=== PATIENT | female | born 1985 | race Caucasian/White ===

== ENCOUNTER 2016-11-04 09:30 | Outpatient (CLI) | payer OTHER | END 2016-11-04 23:00 | LOC: LAB SRH 09:30 | DX: M23.331 Other meniscus derangements, other medial meniscus, right knee (principal) | CPT/HCPCS: 90074; 92860; 93003; 95150; 98020; 98460 ==

== ENCOUNTER 2016-12-08 11:33 | Emergency (ER) | payer OTHER ==
--- NOTE | 2016-12-08 16:18 | ED NURSING NOTES ---
Clinical Report - Nurses [facility] [address] [place] [address] 12/08/2016 11:33 Patient: MARI LOUIE TRIAGE Triage time 11:45. Acuity: LEVEL 3. Chief Complaint: ABDOMINAL PAIN, VOMITING and DIARRHEA. Alert. No acute distress. SEPSIS SCREEN: Sepsis Screen. Negative (no infection suspected/documented). RUBEN COMA SCORE: Ruben Coma Scale: 15- eyes open spontaneously (4); best verbal response- oriented x 4 (5); best motor response- obeys commands (6). --11:49 Pat Olivera R.N. 11:43 12/08/16. BP: 120/83. HR: 124. RR: 16. O2 saturation: 100%. Temp: 98.9 F. Pain level now 8/10. --11:49 Pat Olivera R.N. Weight: 95.2 kg stated. Height/Length: 63 inches Per Patient. BMI: 37.2. --11:44 Pat Olivera R.N. Medications None. --11:46 Pat Olivera R.N. Allergies Cephalexin.(hives) --11:47 Pat Olivera R.N. The following entry was struck and corrected by Pat Olivera R.N., 11:47 (12/08/16) Reason for correction - other(correction). <<STRICKEN ENTRY-- Cephalexin. --11:47 Pat Olivera R.N. --END STRIKE>>. History Arrived by private vehicle. Historian: patient. Accompanied by (Boyfriend). Primary physician (Dr. Cunningham). ( "I woke up sat morning with really back back pain. Every time I move a certain way it spasms. Then I just started throwing up and having diarrhea this morning. Even if I have a little drink I start throwing it up and have diarrhea."). Treatment ELECTRO MECHANIC: None. PAST MEDICAL HX: Immunizations: up-to-date. Last normal menstrual period now. Uses depo implants. SOCIAL HX: Never smoker. No alcohol use or drug use. No recent travel. No infectious disease exposure. No known contact with a sick individual. ABUSE ASSESSMENT: Abuse assessment: The patient was asked "Do you feel safe in your home?" and "Has anyone hurt you or threatened to hurt you?". No report of abuse. SELF HARM ASSESSMENT: A self harm assessment was performed. The patient answered "no" to the question "Do you have thoughts of harming or killing yourself?" and "Have you recently had thoughts about harming or killing others?". NUTRITIONAL RISK ASSESSMENT: The nutritional risk assessment revealed no deficiencies. FUNCTIONAL ASSESSMENT: Functional assessment: no impairments noted. LEARNING NEEDS ASSESSMENT: The learning needs assessment revealed no barriers. --11:49 Pat Olivera R.N. PROBLEMS: Abscess. . . Tonsillitis. Abdominal Pain. Diarrhea. URI. UTI - Urinary Tract Infection. Gastroesophageal Reflux. Pyloric Stenosis, Infantile. Costochondritis. --11:47 Pat Olivera R.N. ADDITIONAL SURGERIES: Appendectomy. Laparoscopy. Pyloric Stenosis Surgery. --11:48 Pat Olivera R.N. Interventions ID band on patient. Ambulatory. --11:49 Pat Olivera R.N. Allergy band on patient. --11:49 Pat Olivera R.N. PHYSICAL ASSESSMENT Ambulatory to room. GENERAL / NEURO / PSYCH: Alert. Appears in no acute distress. HEENT: Mucous membranes are pink. RESPIRATORY: Respirations not labored. CVS: Capillary refill less than 2 seconds. GI / : Abdomen soft. Abdominal tenderness diffusely. SKIN: Skin is warm and dry. --11:49 Pat Olivera R.N. NURSING PROGRESS NOTES Patient gowned. Head of bed elevated. Two patient identifiers checked. Call light placed in reach. Side rails up x 2. Bed placed in lowest position. Brakes of bed on. Patient ready for evaluation- chart flagged. --11:49 Pat Olivera R.N. 11:50 12/08/2016 Site #1 started via IV in the right antecubital space with an 20g angiocath, with aseptic technique and good blood return; two attempts. Saline lock flushed with 10 mL saline (IV accessed by ODALYS Deutsch. Lab notified for blood draw.). --13:05 Pat Olivera R.N. 11:50 12/08/2016 Started bag #1 1000 mL IV Fluids IV NS (Saline); at 1000 mL/hr over 1 hour(s) via site #1 via IV pump. Allergies verified and confirmed 5 rights. IV patency established. IV site checked: no pain, redness, or swelling. IV flushed thoroughly pre- and post-medication administration. --13:05 Pat Olivera R.N. 13:05 12/08/2016 PHENERGAN (Promethazine HCl) IVP 25 mg given over 3 minute(s) via site #1. Allergies verified and confirmed 5 rights. IV patency established. IV site checked: no pain, redness, or swelling. IV flushed thoroughly pre- and post-medication administration. --13:07 Pat Olivera R.N. 13:08 12/08/2016 Morphine IVP 4 mg given over 1 minute(s) via site #1. Allergies verified, confirmed 5 rights and sedative warning given to the patient. IV patency established. IV site checked: no pain, redness, or swelling. IV flushed thoroughly pre- and post-medication administration. --13:08 Pat Olivera R.N. Reassessment after fluids administered and medication administered. She has had no adverse reaction. Patient and family informed about reason for wait. --13:11 Pat Olivera R.N. 13:11 12/08/16. BP: 126/73. HR: 105. RR: 15. O2 saturation: 100%. --13:11 Pat Olivera R.N. 13:25. ( patient given mouth moist tube and swab. States the Phenergan helped with the nausea. Still unable to urinate. Will check back with her in 30 min). --13:33 Amaris Lowery R.N. 14:17 12/08/2016 Site #2 started via IV in the right upper arm with an 20g angiocath, with aseptic technique and good blood return; one attempt. Blood drawn: rainbow set. Labeled in the presence of the patient and sent to the lab. Saline lock flushed with 10 mL saline. --14:32 Ayanna Khalil R.N. 15:37 12/08/2016 Started bag #1 1000 mL IV Fluids IV NS (Saline); at 1000 mL/hr over 1 hour(s) via site #2 via IV pump. Allergies verified and confirmed 5 rights. IV patency established. IV site checked: no pain, redness, or swelling. IV flushed thoroughly pre- and post-medication administration. --15:37 Pat Olivera R.N. 15:37 12/08/2016 Zofran (Ondansetron HCl) IVP 4 mg given over 1 minute(s) via site #2. Allergies verified and confirmed 5 rights. IV patency established. IV site checked: no pain, redness, or swelling. IV flushed thoroughly pre- and post-medication administration. --15:37 Pat Olivera R.N. 15:37 12/08/16. BP: 111/65. HR: 110. RR: 16. O2 saturation: 100%. Pain level now 02/08. --15:41 Pat Olivera R.N. DISPOSITION / DISCHARGE 16:57 12/08/2016 Site #1 removed upon discharge. Catheter intact. Manual pressure and bandaid applied. --17:00 Pat Olivera R.N. 16:57 12/08/2016 Site #2 removed upon discharge. Catheter intact. Manual pressure and bandaid applied. --17:00 Pat Olivera R.N. ( provider aware of discharge v/s. No new orders received.). --17:03 Pat Olivera R.N. 16:59 12/08/16. BP: 114/68. HR: 105. RR: 15. O2 saturation: 99%. Temp: 100.2 F. Pain level now 12/09. --17:03 Pat Olivera R.N. 16:59. Condition at departure: stable. No learning barriers present. Discharge instructions provided and reviewed with the patient. Reviewed medication(s) side effects, precautions, dosing and course information. Prescription(s) given to the patient. Reviewed referral to family practice for followup. Patient verbalized understanding. Written instructions provided in Egyptian. The patient was discharged home and accompanied by nanotechnician. She left the Emergency Department ambulatory and via private vehicle. Distance Learning Administrator driving. Medication list reviewed and validated. --17:04 Pat Olivera R.N. Departure time: 1658. --17:04 Pat Olivera R.N. Locked/Released at 12/08/2016 18:55 by Pat Olivera R.N.
--- NOTE | 2016-12-08 16:18 | ED ORDER SUMMARY ---
..... Patient: MARI LOUIE OrderSheet [facility] VisitID: [id number] [place] [address] 30y, F Registration Date/Time: 12/08/2016 ORDER SHEET Weight: 95.2 kg (stated) Allergies: Cephalexin GENERAL ORDERS: UA-Culture if indicated Urgent (11:45 12/08/2016 Alysia Covarrubias) (Ack 11:53 TBergley) (14:55 TBergley) Urine Urgent (11:45 12/08/2016 Alysia Covarrubias) (Ack 11:53 TBergley) (14:55 TBergley) CBC w Diff Urgent (12:50 12/08/2016 Alysia Covarrubias) (Ack 12:51 TBergley) (14:04 SReitz R.N.) CMP Urgent (12:50 12/08/2016 Alysia Covarrubias) (Ack 12:51 TBergley) (14:04 SReitz R.N.) Lipase Urgent (12:50 12/08/2016 Alysia Covarrubias) (Ack 12:51 TBergley) (14:04 Alenitz R.N.) Pulse oximeter (12:50 12/08/2016 Alysia Covarrubias) (Ack 12:51 TBergley) (14:04 SReitz R.N.) MEDICATION ORDERS: Phenergan IV 25 mg (HIGH ALERT MEDICATION, NOW) (12:49 12/08/2016 Alysia Covarrubias) (Ack 12:57 SReitz R.N.) (13:07 SReitz R.N.) IV FLUIDS: IV NS : initial bolus 1000 mL (1000 mL/hr), then none - for X1 (NOW) (12:49 12/08/2016 Alysia Covarrubias) (Ack 12:57 Alenitz R.N.) (13:05 SReitz R.N.) Morphine IV 4 mg (HIGH ALERT MEDICATION, NOW) (12:50 12/08/2016 Alysia Covarrubias) (Ack 12:57 Deep R.N.) (13:08 Alenitz R.N.) Zofran IV 4 mg (NOW) (15:01 12/08/2016 Alysia Covarrubias) (15:37 Deep R.NReji) IV NS : initial bolus 1000 mL (1000 mL/hr), then none - for X1 (NOW) (15:12/08/2016 Alysia Covarrubias) (15:37 Deep Lawrence.NReji) ORDER SHEET NOTES: [Electronically signed by Pat Olivera R.N. (18:55 12/08/2016)] [Electronically signed by Aman Abdi Dr. (05:39 12/11/2016)] [Electronically locked/signed by Pat Olivera R.N. (18:55 12/08/2016)]
--- NOTE | 2016-12-08 16:18 | ED ORDER SUMMARY ---
..... Patient: MARI LOUIE OrderSheet [facility] VisitID: [id number] [place] [address] 30y, F Registration Date/Time: 12/08/2016 ORDER SHEET Weight: 95.2 kg (stated) Allergies: Cephalexin GENERAL ORDERS: UA-Culture if indicated Urgent (11:45 12/08/2016 Alysia Covarrubias) (Ack 11:53 TBergley) (14:55 TBergley) Urine Urgent (11:45 12/08/2016 lAysia Covarrubias) (Ack 11:53 TBergley) (14:55 TBergley) CBC w Diff Urgent (12:50 12/08/2016 Alysia Covarrubias) (Ack 12:51 TBergley) (14:04 SReitz R.N.) CMP Urgent (12:50 12/08/2016 Alysia Covarrubias) (Ack 12:51 TBergley) (14:04 SReitz R.N.) Lipase Urgent (12:50 12/08/2016 Alysia Covarrubias) (Ack 12:51 TBergley) (14:04 Alenitz R.N.) Pulse oximeter (12:50 12/08/2016 Alysia Covarrubias) (Ack 12:51 TBergley) (14:04 SReitz R.N.) MEDICATION ORDERS: Phenergan IV 25 mg (HIGH ALERT MEDICATION, NOW) (12:49 12/08/2016 Alysia Covarrubias) (Ack 12:57 SReitz R.N.) (13:07 SReitz R.N.) IV FLUIDS: IV NS : initial bolus 1000 mL (1000 mL/hr), then none - for X1 (NOW) (12:49 12/08/2016 Alysia Covarrubias) (Ack 12:57 Alenitz R.N.) (13:05 SReitz R.N.) Morphine IV 4 mg (HIGH ALERT MEDICATION, NOW) (12:50 12/08/2016 Alysia Covarrubias) (Ack 12:57 Deep R.N.) (13:08 Alenitz R.N.) Zofran IV 4 mg (NOW) (15:01 12/08/2016 Alysia Covarrubias) (15:37 Deep R.NReji) IV NS : initial bolus 1000 mL (1000 mL/hr), then none - for X1 (NOW) (15:12/08/2016 Alysia Covarrubias) (15:37 Deep Lawrence.NReji) ORDER SHEET NOTES: [Electronically signed by Pat Olivera R.N. (18:55 12/08/2016)] [Electronically signed by Aman Abdi Dr. (05:39 12/11/2016)] [Electronically locked/signed by Pat Olivera R.N. (18:55 12/08/2016)]
--- NOTE | 2016-12-08 16:18 | ED CLINICAL REPORT ---
Clinical Report - Physicians/Mid Levels [facility] [address] [place] [address] 12/08/2016 11:33 Patient: MARI LOUIE Arrived- By private vehicle. Historian- patient. HISTORY OF PRESENT ILLNESS Chief Complaint: ABDOMINAL PAIN. At its maximum, severity described as moderate. Modifying factors- worsened by movement. Relieved by rest. This started today and is still present. It was abrupt in onset and has been constant but is not gone now. It is described as cramping and it is described as generalized in location and radiating to the upper back. The patient has had nausea, vomiting and diarrhea. No loss of appetite. No recent travel. Similar symptoms previously: None. Recent medical care: Not recently seen/assessed. REVIEW OF SYSTEMS No chest pain. All systems otherwise negative, except as recorded above. PAST HISTORY See nurses notes. Medications: None. Allergies: Cephalexin.(hives). SOCIAL HISTORY Never smoker. No alcohol use or drug use. No recent travel. Is a local resident. ADDITIONAL NOTES The nursing notes have been reviewed. PHYSICAL EXAM Vital Signs: 12/08/2016 11:43 BP: 120/83. HR: 124. RR: 16. O2 saturation: 100%. Temp: 98.9 F. Blood pressure normal. Oxygen saturation normal. Appearance: Alert. Oriented X3. No acute distress. Eyes: Pupils equal, round and reactive to light. Eyes normal inspection. ENT: Ears normal. Nose normal. Pharynx normal. Neck: Normal inspection. Neck supple. CVS: Normal heart rate and rhythm. Heart sounds normal. Pulses normal. Respiratory: No respiratory distress. Breath sounds normal. Chest nontender. Abdomen: Soft and nontender. No organomegaly. No mass. (hyperative bowel sounds). Back: Normal inspection. Skin: Skin warm and dry. Normal skin color. No rash. Normal skin turgor. Extremities: Extremities exhibit normal ROM. No lower extremity edema. LABS, X-RAYS, AND EKG Laboratory Tests: UA-Culture if indicated: (ELLE: 12/08/2016 14:55) ( MsgRcvd 12/08/2016 15:21) Final results Test Result Flag Units (Reference) URINE COLOR YELLOW URINE APPEARANCE CLEAR URINE GLUCOSE NEGATIVE (NEGATIVE) URINE BILIRUBIN NEGATIVE (NEGATIVE) URINE KETONE NEGATIVE (NEGATIVE) URINE SPECIFIC GRAVITY 1.015 (1.010-1.030) URINE PH 7.5 (5.0-8.0) URINE PROTEIN NEGATIVE (NEGATIVE) URINE UROBILINOGEN 0.2 EU/dL (0.2-1.0) URINE NITRITE NEGATIVE (NEGATIVE) URINE BLOOD NEGATIVE (NEGATIVE) URINE LEUK ESTERASE NEGATIVE (NEGATIVE) URINE RBC 0-1 rbc/hpf (0-1) URINE WBC 0-1 wbc/hpf (0-1) URINE EPITHELIAL CELLS 3-5 EPI/hpf (0-5) URINE BACTERIA TRACE (<1+) (NONE SEEN) URINE COMMENT CULT NOT INDICATED URINE CULTURES ARE SET-UP BASED ON THE FOLLOWING CRITERIA:POSITIVE NITRITEPOSITIVE LEUKOCYTE ESTERASEGREATER THAN 10 WHITE BLOOD CELLSMODERATE (2+) OR GREATER BACTERIA Urine: (ELLE: 12/08/2016 14:55) ( [facility] 12/08/2016 15:08) Final results Test Result Flag Units (Reference) URINE NEGATIVE CBC w Diff: (ELLE: 12/08/2016 14:20) ( [facility] 12/08/2016 15:40) Final results Test Result Flag Units (Reference) WHITE BLOOD COUNT 17.6 H K/uL (4.5-11.5) RED BLOOD COUNT 5.11 M/uL (4.00-5.20) HEMOGLOBIN 15.3 gm/dL (12.0-16.0) HEMATOCRIT 45.6 % (36.0-46.0) MEAN CELL VOLUME 89 fL (80-100) MEAN CORPUSCULAR HGB 30 pg (26-34) MEAN CORPUSCULAR HGB CONC 34 g/dL (31-37) RED CELL DISTRIBUTION WIDTH 12.1 % (11.6-14.8) PLATELET COUNT 300 K/uL (150-400) POLY % 86 H % (50-75) BAND % 9 H % (0-8) LYMPH 3 L % (25-40) MONO 2 L % (3-14) EOSINOPHIL % 0 % (0-4) BASOPHIL % 0 % (0-2) METAMYELOCYTE % 0 % (0-1) MYELOCYTE 0 % (0-1) OTHER CELL TYPE 0 RBC MORPHOLOGY NORMOCHROMIC~~NORMOCYTIC CMP: (ELLE: 12/08/2016 14:20) ( MsgRcvd 12/08/2016 14:56) Final results Test Result Flag Units (Reference) GLUCOSE 98 mg/dL (70-110) BUN 16 mg/dL (7-18) CREATININE 0.7 mg/dL (0.6-1.3) Estimated GFR >60 mL/min Estimated GFR- >60 mL/min Note: Persistent reduction over 3 months in eGFR<60 mL/min/1.73 m2 defines CKD. Patients with eGFR values>=60 mL/min/1.73 m2 may also have CKD if evidence ofpersistent proteinuria. Additional information may be foundat www.kidney.org. SODIUM 140 mmol/L (136-145) POTASSIUM 4.3 mmol/L (3.5-5.1) CHLORIDE 104 mmol/L (98-107) CARBON DIOXIDE 25 mmol/L (21-32) CALCIUM 8.3 L mg/dL (8.5-10.1) TOTAL PROTEIN 8.1 g/dL (6.4-8.2) ALBUMIN 3.7 g/dL (3.3-5.0) BILIRUBIN, TOTAL 0.6 mg/dL (0.0-1.0) ALKALINE PHOSPHATASE 93 U/L (46-116) AST (SGOT) 14 L U/L (15-37) ALT (SGPT) 21 U/L (12-78) LIPASE 109 U/L (73-393) . PROGRESS AND PROCEDURES Course of Care: the patient is a pleasant 30-year-old female with no pertinent past medical history presenting for a vaginal abdominal pain and radius of the back. This time differential diagnosis includes acute appendicitis, urinary tract infection, or gastritis. Patient with unremarkable vital signs and nontoxic appearance. Patient will be evaluated with laboratory studies including urinalysis, test, CBC, CMP, and lipase. Patient is agreeable to treatment plan. the patient's workup was remarkable for the findings above. Patient with mild leukocytosis. No other acute findings on patient's workup except for mild hypercalcemia. No blood is noted the patient's urinalysis. Patient is notedto be resting in bed and in no acute distress. patient reevaluated at 14:45. Patient resting in bed and in no acute distress. Patient is asleep. Because of the patient's negative workup and overall comfortable appearance with pain significant improved, do not feel patient needs to be admitted to the hospitalor require further emergency department workup/evaluation. Patient is nontoxic. Laboratory studies are unremarkable. Repeat abdominal exam continues to be benign. Do not fill patient is a surgical abdomen. Do not fill imaging of the abdomen is required at this time given patient's appearance. Discussed with patient in regards to her workup here in the emergency department including diagnosis, home care, follow-up, and return precautions. All questions have been answered. The patient expressed understanding of these instructions and was agreeable to them. Disposition: Discharged. Condition: good. CLINICAL IMPRESSION Acute epigastric abdominal pain. Vomiting with nausea. Diarrhea Moderate dehydration INSTRUCTIONS Warnings: GENERAL WARNINGS: Return or contact your physician immediately if your condition worsens or changes unexpectedly, if not improving as expected, or if other problems arise. SPECIFICALLY, return if you develop pain, fever, vomiting, the inability to keep fluids down, blood in vomitus, blood in diarrhea, fainting or lightheadedness. Your Current Medications: CONTINUE TAKING THE FOLLOWING MEDICATIONS: None*. Prescription Medications: Zofran (orally disintegrating tablets) 4 mg: take 1 orally every 6 hours as needed for nausea and vomiting. Dispense ten (10). No refill. Substitution is permissible. [place] 5 mg / 325 mg tablets: take 1 orally every 6 hours as needed for pain. Dispense fifteen (15). No refill. Substitution is permissible. OTC Medications: Imodium (available over the counter): take according to label instructions. Follow-up: Return to the emergency department as needed. Follow up with your doctor in three days. Reason for referral: recheck today's concerns. Summary of care provided to patient via paper. Screening today revealed the patient's blood pressure to be in the normal range. The patient should follow up with a primary care provider for blood pressure management. Understanding of the discharge instructions verbalized by patient. (Electronically signed by Aman Abdi Dr. 12/11/2016 5:39)
--- NOTE | 2016-12-11 05:39 | ED DISCHARGE INSTRUCTIONS ---
Patient: MARI LOUIE General Instructions [facility] VisitID: [id number] [place] [address] 30y, F Registration Date/Time: 12/08/2016 Acute epigastric abdominal pain. Vomiting with nausea. Diarrhea Moderate dehydration INSTRUCTIONS Warnings: GENERAL WARNINGS: Return or contact your physician immediately if your condition worsens or changes unexpectedly, if not improving as expected, or if other problems arise. SPECIFICALLY, return if you develop pain, fever, vomiting, the inability to keep fluids down, blood in vomitus, blood in diarrhea, fainting or lightheadedness. Your Current Medications: CONTINUE TAKING THE FOLLOWING MEDICATIONS: None*. Prescription Medications: Zofran (orally disintegrating tablets) 4 mg: take 1 orally every 6 hours as needed for nausea and vomiting. Dispense ten (10). No refill. Substitution is permissible. [place] 5 mg / 325 mg tablets: take 1 orally every 6 hours as needed for pain. Dispense fifteen (15). No refill. Substitution is permissible. OTC Medications: Imodium (available over the counter): take according to label instructions. Follow-up: Return to the emergency department as needed. Follow up with your doctor in three days. Reason for referral: recheck today's concerns. Summary of care provided to patient via paper. Screening today revealed the patient's blood pressure to be in the normal range. The patient should follow up with a primary care provider for blood pressure management. Understanding of the discharge instructions verbalized by patient. ADDITIONAL INFORMATION Abdominal Pain,Uncertain Cause [Male] Based on your visit today, the exact cause of your abdominalpain is not clear. Your exam and tests do not indicate a dangerous cause at this time. However, the signs of a serious problem may take more time to appear. Although your evaluation was reassuring today, sometimes early in the course of many conditions, exam and lab tests can appear normal. Therefore, it is important for you to watch for any new symptoms or worsening of your condition. Causes It may not be obvious what caused your symptoms. Pay attention to things that do seem to make your symptoms worse or better and discuss this with your doctor when you follow up. Diagnosis The evaluation of abdominal pain in the emergency department may onlyrequire an exam by the doctor or it may include blood, urine or imaging studies, depending on many factors. Sometimes exams and tests can identify a cause but in many cases, a clear cause is not found. Further testing at follow up visits may help to suggest a clear diagnosis. Home Care Rest as much as possible until your next exam. Try to avoid any medications (unless otherwise directed by your doctor), foods, activities, or other factors that you may have contributed to your symptoms. Try to eat foods that you know that you have tolerated well in the past. Certain diets may be recommended for some conditions that cause abdominal pain. However, since the cause of your symptoms may not be clear, discuss your diet more with your primary care provider or specialist for further recommendations. Eating several small meals per day as opposed to 2 or 3 larger meals may help. Monitor closely for anything that may make your symptoms worse or better. Pay close attention to symptoms below that may indicate worsening of your condition. Follow Up and Precautions See your doctoras instructed or sooneror if your symptoms are not improving.In some cases, you may need more testing. When to Seek Medical Attention Contact your doctor or see medical attention ifany of the following occur: Pain is becoming worse You are unable to take your medications due to excessive vomiting Swelling of the abdomen Fever of 100.4F (38C) or higher, or as directed by your health care provider Blood in vomit or bowel movements (dark red or black color) Jaundice (yellow color of eyes and skin) New onset of weakness, dizziness or fainting New onset of chest, arm, back, neck or jaw pain Vomiting [6Yr-Adult] Vomiting is a common symptom that may be due to different causes. These include gastroenteritis ("stomach flu"), food poisoning and gastritis. There are other more serious causes of vomiting which may be hard to diagnose early in the illness. Therefore, it is important to watch for the warning signs listed below. The main danger from repeated vomiting is dehydration. This is due to excess loss of water and minerals from the body. When this occurs, body fluids must be replaced. Home Care: If symptoms are severe, rest at home for the next 24 hours. You may use acetaminophen (Tylenol) or ibuprofen (Motrin, Advil) to control fever, unless another medicine was prescribed. [NOTE : If you have chronic liver or kidney disease or ever had a stomach ulcer or GI bleeding, talk with your doctor before using these medicines.] (Aspirin should never be used in anyone under 18 years of age who is ill with a fever. It may cause severe liver damage.) Avoid tobacco and alcohol use, which may worsen your symptoms. If medicines for vomiting were prescribed, take as directed. Once vomiting stops, then follow these guidelines: During The First 12-24 Hours follow the diet below: FRUIT JUICES: Apple, grape juice, clear fruit drinks, and electrolyte replacement drinks. BEVERAGES: Soft drinks without caffeine; mineral water (plain or flavored), decaffeinated tea and coffee. SOUPS: Clear broth, consomm and bouillon DESSERTS: Plain gelatin, popsicles and fruit juice bars. As you feel better, you may add 6-8 ounces of yogurt per day. During The Next 24 Hours you may add the following to the above: Hot cereal, plain toast, bread, rolls, crackers Plain noodles, rice, mashed potatoes, chicken noodle or rice soup Unsweetened canned fruit (avoid pineapple), bananas Limit caffeine and chocolate. No spices or seasonings except salt. During The Next 24 Hours Gradually resume a normal diet, as you feel better and your symptoms lessen. Follow Up with your doctor as advised if you are not improving over the next 2-3 days. Get Prompt Medical Attention if any of the following occur: Constant right-sided lower abdominal pain or increasing general abdominal pain Continued vomiting (unable to keep liquids down) for 24 hours Frequent diarrhea (more than 5 times a day); blood (red or black color) or mucus in diarrhea Reduced urine output or extreme thirst Weakness, dizziness or fainting Unusually drowsy or confused Fever of 100.4F (38C) oral or higher, not better with fever medication Yellow color of the eyes or skin Diarrhea, Uncertain Cause (Adult, Report Pending) Diarrhea has several possible causes. Commonstomach fluis caused by a virus. Food poisoning, bacteria or parasites are other causes for diarrhea. Only diarrhea caused by bacteria or parasites requires treatment with an antibiotic. Diarrhea from a virus or food poisoning improves with simple home treatment. A stool sample is needed to make the diagnosis of an infection with bacteria or parasites. Up to three stool specimens may be required to diagnose This may take up to two days to get the result. It may be necessary to wait until the stool test is complete to make the diagnosis and select the best antibiotic to prescribe. Home Care: If symptoms are severe, rest at home for the next 24 hours or until you are feeling better. You may use acetaminophen (Tylenol) or ibuprofen (Motrin, Advil) to control fever, unless another medicine was prescribed. [NOTE: If you have chronic liver or kidney disease or ever had a stomach ulcer or GI bleeding, talk with your doctor before using these medicines.] (Aspirin should never be used in anyone under 18 years of age who is ill with a fever. It may cause severe liver damage.) Avoid tobacco, caffeine and alcohol, which may worsen your symptoms. If anti-diarrhea medicine was prescribed, take this only as directed. Sometimes anti-diarrhea medicine can make your condition worse if the cause is an infectious diarrhea. Therefore, anti-diarrhea medicine should not be taken for this condition unless advised by your doctor. During The First 12-24 Hours follow the diet below: BEVERAGES: Sport drinks like Gatorade, soft drinks without caffeine; shirley rao, mineral water (plain or flavored), decaffeinated tea and coffee. SOUPS: Clear broth, consomm and bouillon DESSERTS: Plain gelatin (Jell-O), popsicles and fruit juice bars. During The Next 24 Hours you may add the following to the above: Hot cereal, plain toast, bread, rolls, crackers Plain noodles, rice, mashed potatoes, chicken noodle or rice soup Unsweetened canned fruit (avoid pineapple), bananas Limit fat intake to less than 15 grams per day by avoiding margarine, butter, oils, mayonnaise, sauces, gravies, fried foods, peanut butter, meat, poultry and fish. Limit fiber; avoid raw or cooked vegetables, fresh fruits (except bananas) and bran cereals. Limit caffeine and chocolate. No spices or seasonings except salt. During The Next 24 Hours Gradually resume a normal diet, as you feel better and your symptoms lessen. Follow Up with your doctor or as advised if you are not improving over the next two days. If you were asked to bring a specimen from home, bring the sample on the day of collection. You may call in 2 days (or as directed) for the results. Get Prompt Medical Attention if any of the following occur: Increasing abdominal pain or constant lower right abdominal pain Continued vomiting (unable to keep liquids down) Frequent diarrhea (more than 5 times a day) Blood in vomit or stool (black or red color) Reduced oral intake Dark urine, reduced urine output Weakness, dizziness, fainting Drowsiness, confusion, stiff neck or seizure Fever of 100.4F (38C) oral or higher, not better with fever medication New rash Dehydration (Adult) Dehydration occurs when your body loses too much fluid. This may be the result of vomiting a lot or from diarrhea,sweating a lot, or a high fever. It may also happen if you dont drink enough fluid when youre sick. Misuse of diuretics (water pills) can also be a cause. Symptoms include thirst and feeling dizzy, weak, fatigued, or very drowsy. The diet described below is usually enough to treat most cases. Sometimes you may needmedicine. Home Care Follow these guidelines for home care: Drink at least 12 8-ounce glasses of fluid every day to overcome the dehydration. Fluid may include water; orange juice; lemonade; apple, grape, and cranberry juice; clear fruit drinks; electrolyte replacement and sports drinks; and teas and coffee without caffeine. If you have been diagnosed with a kidney disease, ask your doctor how much and what types of fluids you should drink to prevent dehydration. If you have kidney disease, drinking too much fluid can cause it build up in the your body and be dangerous to your health. If you have fever, muscle aching, or headache from a viral syndrome, you may useacetaminophen or ibuprofen, unless another medicine was prescribed for this.If you have chronic liver or kidney disease or ever had a stomach ulcer or GI bleeding, talk with your doctor before using these medicines. Don't take aspirin if you are younger than 18 and are ill with a fever.Aspirin raises the chance forsevere liver injury. Follow-up care Follow up with your health care provider if you don't get better in the next 24 to 48 hours. When to seek medical care Get prompt medical attention if any of theseoccur: Continued vomiting (cant keep liquids down) Frequent diarrhea (more than 5 times a day); blood (red or black color) or mucus in diarrhea Blood in vomit or stool Swollen abdomen or increasing abdominal pain Weakness, dizziness, or fainting Unusually drowsy or confused Reduced urine output or extreme thirst Fever of 100.4 F (38 C) oral or higher that does not get better with fever medication Ondansetron Oral disintegrating tablet What is this medicine? ONDANSETRON (on NED se polly) is used to treat nausea and vomiting caused by chemotherapy. It is also used to prevent or treat nausea and vomiting after surgery. How should I use this medicine? These tablets are made to dissolve in the mouth. Do not try to push the tablet through the foil backing. With dry hands, peel away the foil backing and gently remove the tablet. Place the tablet in the mouth and allow it to dissolve, then swallow. While you may take these tablets with water, it is not necessary to do so. Talk to your beef selector regarding the use of this medicine in children. Special care may be needed. What side effects may I notice from receiving this medicine? Side effects that you should report to your doctor or health administrator health care facility as soon as possible: allergic reactions like skin rash, itching or hives, swelling of the face, lips, or tongue breathing problems dizziness fast or irregular heartbeat feeling faint or lightheaded, falls fever and chills swelling of the hands and feet tightness in the chest Side effects that usually do not require medical attention (report to your doctor or health administrator health care facility if they continue or are bothersome): constipation or diarrhea headache What may interact with this medicine? Do not take this medicine with any of the following medications: -apomorphine -cisapride -dofetilide -dronedarone -pimozide -thioridazine -ziprasidone This medicine may also interact with the following medications: -carbamazepine -phenytoin -rifampicin -tramadol -other medicines that prolong the QT interval (cause an abnormal heart rhythm) What if I miss a dose? If you miss a dose, take it as soon as you can. If it is almost time for your next dose, take only that dose. Do not take double or extra doses. Where should I keep my medicine? Keep out of the reach of children. Store between 2 and 30 degrees C (36 and 86 degrees F). Throw away any unused medicine after the expiration date. What should I tell my health care provider before I take this medicine? They need to know if you have any of these conditions: heart disease history of irregular heartbeat liver disease low levels of magnesium or potassium in the blood an unusual or allergic reaction to ondansetron, granisetron, other medicines, foods, dyes, or preservatives or trying to get breast-feeding What should I watch for while using this medicine? Check with your doctor or health administrator health care facility as soon as you can if you have any sign of an allergic reaction. Hydrocodone Bitartrate, Acetaminophen Oral tablet What is this medicine? ACETAMINOPHEN; HYDROCODONE (a set a GIOVANNA louis fen; cinthia droe KOE done) is a pain reliever. It is used to treat mild to moderate pain. How should I use this medicine? Take this medicine by mouth. Swallow it with a full glass of water. Follow the directions on the prescription label. If the medicine upsets your stomach, take the medicine with food or milk. Do not take more than you are told to take. Talk to your beef selector regarding the use of this medicine in children. This medicine is not approved for use in children. What side effects may I notice from receiving this medicine? Side effects that you should report to your doctor or health administrator health care facility as soon as possible: allergic reactions like skin rash, itching or hives, swelling of the face, lips, or tongue breathing problems confusion feeling faint or lightheaded, falls stomach pain yellowing of the eyes or skin Side effects that usually do not require medical attention (report to your doctor or health administrator health care facility if they continue or are bothersome): nausea, vomiting stomach upset What may interact with this medicine? alcohol antihistamines isoniazid medicines for depression, anxiety, or psychotic disturbances medicines for sleep muscle relaxants naltrexone narcotic medicines (opiates) for pain phenobarbital ritonavir tramadol What if I miss a dose? If you miss a dose, take it as soon as you can. If it is almost time for your next dose, take only that dose. Do not take double or extra doses. Where should I keep my medicine? Keep out of the reach of children. This medicine can be abused. Keep your medicine in a safe place to protect it from theft. Do not share this medicine with anyone. Selling or giving away this medicine is dangerous and against the law. Store at room temperature between 15 and 30 degrees C (59 and 86 degrees F). Protect from light. Keep container tightly closed. Throw away any unused medicine after the expiration date. Discard unused medicine and used packaging carefully. Pets and children can be harmed if they find used or lost packages. What should I tell my health care provider before I take this medicine? They need to know if you have any of these conditions: brain tumor Crohn's disease, inflammatory bowel disease, or ulcerative colitis drink more than 3 alcohol-containing drinks per day drug abuse or addiction head injury heart or circulation problems kidney disease or problems going to the bathroom liver disease lung disease, asthma, or breathing problems an unusual or allergic reaction to acetaminophen, hydrocodone, other opioid analgesics, other medicines, foods, dyes, or preservatives or trying to get breast-feeding What should I watch for while using this medicine? Tell your doctor or health administrator health care facility if your pain does not go away, if it gets worse, or if you have new or a different type of pain. You may develop tolerance to the medicine. Tolerance means that you will need a higher dose of the medicine for pain relief. Tolerance is normal and is expected if you take the medicine for a long time. Do not suddenly stop taking your medicine because you may develop a severe reaction. Your body becomes used to the medicine. This does NOT mean you are addicted. Addiction is a behavior related to getting and using a drug for a non-medical reason. If you have pain, you have a medical reason to take pain medicine. Your doctor will tell you how much medicine to take. If your doctor wants you to stop the medicine, the dose will be slowly lowered over time to avoid any side effects. You may get drowsy or dizzy when you first start taking the medicine or change doses. Do not drive, use machinery, or do anything that may be dangerous until you know how the medicine affects you. Stand or sit up slowly. There are different types of narcotic medicines (opiates) for pain. If you take more than one type at the same time, you may have more side effects. Give your health care provider a list of all medicines you use. Your doctor will tell you how much medicine to take. Do not take more medicine than directed. Call emergency for help if you have problems breathing. The medicine will cause constipation. Try to have a bowel movement at least every 2 to 3 days. If you do not have a bowel movement for 3 days, call your doctor or health administrator health care facility. Too much acetaminophen can be very dangerous. Do not take Tylenol (acetaminophen) or medicines that contain acetaminophen with this medicine. Many non-prescription medicines contain acetaminophen. Always read the labels carefully. You have been given the following additional information: Abdominal Pain, Unknown Cause, (Male) Vomiting (6Y-Adult) Diarrhea, Unk Cause (Adult) Report Pendg Dehydration (Adult) Ondansetron Oral disintegrating tablet Hydrocodone Bitartrate, Acetaminophen Oral tablet (Electronically signed by Aman Abdi Dr. 12/11/2016 5:39)
--- NOTE | 2016-12-11 05:40 | ED MAR SUMMARY ---
..... Medication Administration Record [facility] [address] [place] [address] Patient: MARI LOUIE Visit ID: [id number] 30y, F Weight: 95.2 kg Height/Length: 63 in BMI: 37.2 ALLERGIES: Cephalexin Start 11:50 12/08/2016 Pat Olivera R.N. Medication Administered: IV NS (SALINE), Dose: IV Fluids over 1 hour(s), Rate: 1000 mL/hr, Dispensed: 1000 mL bag, Site: #1 right AC. Medication Ordered: IV NS : initial bolus 1000 mL (1000 mL/hr), then none - for X1 (NOW). Given 13:05 12/08/2016 Pat Olivera R.N. Medication Administered: PHENERGAN [IVP] (PROMETHAZINE HCL), Dose: 25 mg IVP over 3 minute(s), Site: #1 right AC. Medication Ordered: Phenergan IV 25 mg (HIGH ALERT MEDICATION, NOW). Given 13:08 12/08/2016 Pat Olivera R.N. Medication Administered: MORPHINE [IVP], Dose: 4 mg IVP over 1 minute(s), Site: #1 right AC. Medication Ordered: Morphine IV 4 mg (HIGH ALERT MEDICATION, NOW). Given 15:37 12/08/2016 Pat Olivera R.N. Medication Administered: ZOFRAN [IVP] (ONDANSETRON HCL), Dose: 4 mg IVP over 1 minute(s), Site: #2 right upper arm. Medication Ordered: Zofran IV 4 mg (NOW). Start 15:37 12/08/2016 Pat Olivera R.N. Medication Administered: IV NS (SALINE), Dose: IV Fluids over 1 hour(s), Rate: 1000 mL/hr, Dispensed: 1000 mL bag, Site: #2 right upper arm. Medication Ordered: IV NS : initial bolus 1000 mL (1000 mL/hr), then none - for X1 (NOW).
--- NOTE | 2016-12-11 05:40 | ED MED RECONCILIATION SUMMARY ---
Patient: MARI LOUIE Medication Reconciliation Report [facility] VisitID: [id number] [place] [address] 30y, F Registration Date/Time: 12/08/2016 Weight: 95.2 kg Height/Length: 63 in. BMI: 37.2 ALLERGIES: Cephalexin The patient's Home Medications are listed below: NONE. The source(s) of the original Home Medication information: Not obtained. The following Medications were given to the patient in the Emergency Department: IV NS IV Fluids bolus 0, then 1000 mL/hr, administered: 12/08/2016 11:50:00 AM PHENERGAN [IVP] IVP 25 mg, administered: 12/08/2016 1:05:00 PM Morphine [IVP] IVP 4 mg, administered: 12/08/2016 1:08:00 PM IV NS IV Fluids bolus 0, then 1000 mL/hr, administered: 12/08/2016 3:37:00 PM Zofran [IVP] IVP 4 mg, administered: 12/08/2016 3:37:00 PM The following Medications were prescribed to the patient: Zofran (orally disintegrating tablets) 4 mg: take 1 orally every 6 hours as needed for nausea and vomiting. Dispense ten (10). No refill. Substitution is permissible. -- Aman Abdi Dr. [place] 5 mg / 325 mg tablets: take 1 orally every 6 hours as needed for pain. Dispense fifteen (15). No refill. Substitution is permissible. -- Aman Abdi Dr. Imodium (available over the counter): take according to label instructions. -- Aman Abdi Dr.
--- NOTE | 2016-12-11 05:40 | ED MED RECONCILIATION SUMMARY ---
Patient: MARI LOUIE Medication Reconciliation Report [facility] VisitID: [id number] [place] [address] 30y, F Registration Date/Time: 12/08/2016 Weight: 95.2 kg Height/Length: 63 in. BMI: 37.2 ALLERGIES: Cephalexin The patient's Home Medications are listed below: NONE. The source(s) of the original Home Medication information: Not obtained. The following Medications were given to the patient in the Emergency Department: IV NS IV Fluids bolus 0, then 1000 mL/hr, administered: 12/08/2016 11:50:00 AM PHENERGAN [IVP] IVP 25 mg, administered: 12/08/2016 1:05:00 PM Morphine [IVP] IVP 4 mg, administered: 12/08/2016 1:08:00 PM IV NS IV Fluids bolus 0, then 1000 mL/hr, administered: 12/08/2016 3:37:00 PM Zofran [IVP] IVP 4 mg, administered: 12/08/2016 3:37:00 PM The following Medications were prescribed to the patient: Zofran (orally disintegrating tablets) 4 mg: take 1 orally every 6 hours as needed for nausea and vomiting. Dispense ten (10). No refill. Substitution is permissible. -- Aman Abdi Dr. [place] 5 mg / 325 mg tablets: take 1 orally every 6 hours as needed for pain. Dispense fifteen (15). No refill. Substitution is permissible. -- Aman Abdi Dr. Imodium (available over the counter): take according to label instructions. -- Aman Abdi Dr.
--- NOTE | 2016-12-11 05:40 | ED MAR SUMMARY ---
..... Medication Administration [facility] [address] [place] [address] Patient: MARI LOUIE Visit ID: [id number] 30y, F Weight: 95.2 kg Height/Length: 63 in BMI: 37.2 ALLERGIES: Cephalexin Start 11:50 12/08/2016 Pat Olivera R.N. Medication Administered: IV NS (SALINE), Dose: IV Fluids over 1 hour(s), Rate: 1000 mL/hr, Dispensed: 1000 mL bag, Site: #1 right AC. Medication Ordered: IV NS : initial bolus 1000 mL (1000 mL/hr), then none - for X1 (NOW). Given 13:05 12/08/2016 Pat Olivera R.N. Medication Administered: PHENERGAN [IVP] (PROMETHAZINE HCL), Dose: 25 mg IVP over 3 minute(s), Site: #1 right AC. Medication Ordered: Phenergan IV 25 mg (HIGH ALERT MEDICATION, NOW). Given 13:08 12/08/2016 Pat Olivera R.N. Medication Administered: MORPHINE [IVP], Dose: 4 mg IVP over 1 minute(s), Site: #1 right AC. Medication Ordered: Morphine IV 4 mg (HIGH ALERT MEDICATION, NOW). Given 15:37 12/08/2016 Pat Olivera R.N. Medication Administered: ZOFRAN [IVP] (ONDANSETRON HCL), Dose: 4 mg IVP over 1 minute(s), Site: #2 right upper arm. Medication Ordered: Zofran IV 4 mg (NOW). Start 15:37 12/08/2016 Pat Olivera R.N. Medication Administered: IV NS (SALINE), Dose: IV Fluids over 1 hour(s), Rate: 1000 mL/hr, Dispensed: 1000 mL bag, Site: #2 right upper arm. Medication Ordered: IV NS : initial bolus 1000 mL (1000 mL/hr), then none - for X1 (NOW).
== END 2016-12-08 16:57 | disposition home or self-care (01) ==
LOC: ED SRH 11:33
DX: E86.0 Dehydration (principal); R10.13 Epigastric pain; R11.2 Nausea with vomiting, unspecified; R19.7 Diarrhea, unspecified; Z88.1 Allergy status to other antibiotic agents
CPT/HCPCS: 90004; 90100; 91643; 92235; 93070; 95059